=== PATIENT | male | born 1990 | race Caucasian/White ===

== ENCOUNTER → 2024-09-11 | Outpatient (CLI) | payer OTHER, SELFPAY ==
--- NOTE | 2024-09-11 12:54 | ECHOCS_ITS ---
Reason For Study Reason For Study: BiCuspid Aortic Valve Procedure This was a 2D Doppler, Color Flow transthoracic echocardiogram. Contrast injection was performed. Due to suboptimal apical imaging windows. Exam performed in department. Left Ventricle Normal LV size. The left ventricular ejection fraction is 60 %. Stage 1 diastolic dysfunction. No regional wall motion abnormalities noted. Right Ventricle Normal RV size. Normal systolic function. Atria Normal left atrium. Normal right atrium. Mitral Valve Normal mitral valve. Trivial mitral valve insufficiency. Tricuspid Valve Normal tricuspid valve. Aortic Valve Bicuspid aortic valve. Mild (1+) eccentric aortic valve insufficiency. Pulmonic Valve Normal pulmonic valve. Great Vessels Normal aortic root. The pulmonary artery is normal size. Inferior vena cava collapse with respiration. Pericardium/Pleural No pericardial effusion. Medication 22 gauge I.V. with prn adaptor inserted into right arm. Diluted definity 1.0ml given slow IV push to enhance endocardial definition. MMode/2D Measurements & Calculations LVIDd: 4.5 cm IVSd: 1.1 cm LVOT diam: 2.4 cm LVIDs: 3.3 cm LVPWd: 1.1 cm RVDd: 3.2 cm FS: 26.3 % LVOT area: 4.6 cm2 Ao root diam: 3.6 cm LAV(MOD-bp): 38.1 ml LVAd ap4: 31.9 cm2 LAV(MOD-bp) Indexed: 17.7 ml/m2 LVLd ap4: 8.9 cm LAV(MOD-sp2): 38.3 ml EDV(MOD-sp4): 92.9 ml LAV(MOD-sp4): 38.5 ml EDV(sp4-el): 97.2 ml LVAs ap4: 19.5 cm2 LVLs ap4: 7.8 cm ESV(MOD-sp4): 39.7 ml ESV(sp4-el): 41.6 ml EF(MOD-sp4): 57.3 % EF(sp4-el): 57.2 % SV(MOD-sp4): 53.3 ml SV(sp4-el): 55.5 ml LA A4 area: 14.9 cm2 SI(MOD-sp4): 24.8 ml/m2 LA dimension(2D): 3.6 cm RA A4 area: 16.0 cm2 TAPSE: 2.5 cm Time Measurements MV dec time: 0.16 sec Doppler Measurements & Calculations MV E max alex: 64.7 cm/sec Lat Peak E' Alex: 16.9 cm/sec Med Peak E' Alex: 9.5 cm/sec MV A max alex: 66.4 cm/sec E/E' lat: 3.8 E/E' med: 6.8 MV E/A: 0.97 MV V2 max: 73.3 cm/sec MV P1/2t max alex: 67.3 cm/sec Ao V2 max: 141.7 cm/sec MV max P.2 mmHg MV P1/2t: 64.3 msec Ao max P.1 mmHg MV V2 mean: 50.6 cm/sec MV dec slope: 306.5 cm/sec2 Ao V2 mean: 99.9 cm/sec MV mean P.1 mmHg MVA(P1/2t): 3.4 cm2 Ao mean P.5 mmHg MV V2 VTI: 17.2 cm Ao V2 VTI: 28.4 cm MVA(VTI): 4.1 cm2 AV (velocity ratio): 0.55 ALCIRA(I,D): 2.5 cm2 ALCIRA(V,D): 2.5 cm2 AI max alex: 359.9 cm/sec LV V1 max: 77.3 cm/sec SV(LVOT): 71.1 ml AI max P.8 mmHg LV V1 max P.4 mmHg LV V1 mean P.4 mmHg AI dec slope: 223.0 cm/sec2 LV V1 mean: 56.5 cm/sec AI P1/2t: 472.6 msec LV V1 VTI: 15.5 cm PA V2 max: 102.8 cm/sec PI end-d alex: 138.1 cm/sec TR max alex: 193.6 cm/sec PA V2 mean: 71.9 cm/sec TR max P.0 mmHg ECHO/Echo Complete W/ Contrast Interpretation Summary The left ventricular ejection fraction is 60 %. Stage 1 diastolic dysfunction. Bicuspid aortic valve. Mild (1+) eccentric aortic valve insufficiency. Ordering Physician: Nickolas Caceres Referring Physician: Salvador Obregon Performed By: Alayna Johnson, RDCS, RVT
--- NOTE | 2024-09-11 13:55 | CT_ITS ---
PROCEDURE: CTA CHEST W/WO CONTRAST 09/11/2024 REASON FOR EXAM: COARCTATION TECHNIQUE: CTA imaging of the chest with intravenous contrast. Multiplanar and multisequence images were obtained. 100 cc of contrast One or more dose reduction techniques were used (e.g., Automated exposure control, adjustment of the mA and/or kV according to patient size, use of iterative reconstruction technique). RADIATION DOSE SUMMARY: CTDlvol: ? MGy DLP: ? MGycm COMPARISON: ? # of known CTs in the past 12 months: ? # of known Cardiac Nuclear Medicine Studies in the past 12 months: ? FINDINGS: Bicuspid aortic valve seen. No aortic aneurysm. By CT appearance no aortic coarctation. No dissection. Upper abdominal viscera and vessels unremarkable. Lungs are clear. No coronary artery calcification. No aortic aneurysm. No pericardial fluid. CT/CTA Chest W/WO Contrast IMPRESSION: Study within normal limits [facility]
== END | disposition home or self-care (01) ==
LOC: CT 12:54
PROVIDERS: PCP Nurse Practitioner Family; Referring Provider Internal Medicine Cardiovascular Disease; Visit Provider Internal Medicine Cardiovascular Disease
DX: Q23.1 Congenital insufficiency of aortic valve (principal); Q25.1 Coarctation of aorta
CPT/HCPCS: 71275; 93306; Q9957; Q9967; A4216; C8929